=== PATIENT | male | born 1960 | race Hispanic/Latino ===

== ENCOUNTER 2020-01-10 23:30 | Emergency (ER) | payer BC ==
--- NOTE | 2020-01-11 00:12 | CT ---
Exam: Head CT without contrast HISTORY: Headache COMPARISON: none FINDINGS: Hemorrhage: No intraparenchymal hemorrhage or extra-axial hematoma. Brain parenchyma: Cortical vergara-white matter differentiation is preserved. No mass effect or midline shift. Basilar cisterns are patent. Ventricular system: Ventricles and sulci are patent and symmetric. Calvarium: Intact. Sinuses and mastoid air cells: Minimal mucosal thickening of the posterior left ethmoid air cells IMPRESSION: No acute intracranial process.
== END 2020-01-11 00:56 | disposition home or self-care (01) ==
LOC: ERS 23:30
DX: M54.2 Cervicalgia (principal); R51 Headache; I10 Essential (primary) hypertension; E11.9 Type 2 diabetes mellitus without complications; Z79.899 Other long term (current) drug therapy
CPT/HCPCS: 36416; 70450